=== PATIENT | male | born 1995 | race Caucasian/White ===

== ENCOUNTER 2023-02-24 15:26 | Emergency (ER) | payer OTHER, SELFPAY ==
[2023-02-24 15:33] VITALS: BP 123/95; PULSE 79; RESP 16; TEMP 36.8; O2SAT 100
--- NOTE | 2023-02-24 15:41 | ED.SKABFB ---
HPI - Skin/Abscess/Foreign Bdy General Chief complaint: Skin/Abscess/Foreign Body Stated complaint: Bee Sting/Rash Time Seen by Provider: 02/24/23 15:35 Source: patient and RN notes reviewed Mode of arrival: ambulatory Limitations: no limitations History of Present Illness HPI narrative: 27-year-old male presents with concern for rash after being stung by a bee. He reports he was trimming bushes earlier today and was stung a couple of times by a bee. He reports initially his hand where he was stung was swollen and red, he later noticed a generalized rash. He denies lip swelling, tongue swelling, throat itching, trouble breathing, nausea, vomiting, diarrhea, oral lesions. Reports he took Benadryl use hydrocortisone cream complaint: rash and insect bite/sting Related Data Allergies Allergy/AdvReac Type Severity Reaction Status Date / Time No Known Allergies Allergy Unverified 05/03/19 19:57 Review of Systems Review of Systems: CONSTITUTIONAL: Denies malaise, chills, sweats, or fever. EYES: Denies redness, or discharge. ENT: Denies rhinorrhea, congestion, swollen lips, swollen tongue CARDIOVASCULAR: Denies chest pain, palpitations, or edema. RESPIRATORY: Denies cough or dyspnea. GASTROINTESTINAL: Denies abdominal pain, nausea, vomiting SKIN: Reports generalized rash MUSCULOSKELETAL: Denies joint pain or myalgia. NEUROLOGIC: Denies headache. All systems reviewed & are unremarkable except as noted in HPI and below PMFSH Comments At time of signature, agree with nursing past medical, surgical, social and family history. There is no relevant family history pertinent to the presenting complaint Exam Narrative: GENERAL: Well-appearing, well-nourished, and in no acute distress. HEAD: Normocephalic, atraumatic. EYES: PERRLA, conjunctivae clear, and EOMI. ENT: Mucous membranes moist. Oropharynx without edema, erythema or lesions. NECK: Supple. No lymphadenopathy CHEST: Clear to auscultation. No respiratory distress. HEART: Regular rate and rhythm. SKIN: Warm, dry. Scattered patches of erythematous papules to the arms, legs, trunk NEURO: Alert and oriented x3. PSYCH: Normal mood and affect Course Course Emergency Course: Patient is aware of diagnosis, understands and agrees to treatment plan. Anticipatory guidance given. Patient agrees to follow-up as directed and is aware of reasons to seek care at the emergency department. Portions of this record may have been created with voice recognition software Level of Care: Express Care Visit Vital Signs Vital signs: Vital Signs Temperature 98.3 F 02/24/23 15:33 Pulse Rate 79 02/24/23 15:33 Respiratory Rate 16 02/24/23 15:33 Blood Pressure 123/95 H 02/24/23 15:33 Pulse Oximetry 100 02/24/23 15:33 Oxygen Delivery Room Air 02/24/23 15:33 Temperature 98.3 F 02/24/23 15:33 Pulse Rate 79 02/24/23 15:33 Respiratory Rate 16 02/24/23 15:33 Blood Pressure 123/95 H 02/24/23 15:33 Pulse Oximetry 100 02/24/23 15:33 Oxygen Delivery Room Air 02/24/23 15:33 Reviewed. MDM - Skin/Abscess/Foreign Bdy MDM Narrative Medical decision making narrative: No evidence of mucosal involvement, respiratory compromise, circulatory compromise or GI symptoms No soft palate or uvula edema, no tongue or lip edema or other mucosal involvement, no respiratory compromise, no stridor, no wheezing, no wheezing, no history of syncope, no hypotension, no nausea, vomiting, or diarrhea. Critical Care Time Critical Care Time Critical Care Time: No Discharge Plan Discharge Clinical Impression: Allergy to bee sting Patient Disposition: Home, Self-Care Condition: Stable Instructions: Insect Bite or Sting (ED), General Allergic Reaction (ED) Additional Instructions: Take medications as directed. If you developed swollen lips, swollen tongue, trouble breathing, severe nausea, vomiting or diarrhea you need to go to the emergency room. Your pre
[2023-02-24] MEDS: methylPREDNISolone SOD SUCC 125 MG VIAL IM (15:43)
== END 2023-02-24 16:10 | disposition home or self-care (01) ==
PROVIDERS: Emergency Provider Nurse Practitioner
DX: T63.441A Toxic effect of venom of bees, accidental (unintentional), initial encounter (principal)
CPT/HCPCS: 96372; 99203; G0463; J2930